=== PATIENT | female | born 1940 | race Caucasian/White ===

== ENCOUNTER → 2018-01-03 | Day surgery (SDC) | payer MEDICARE, BC ==
[~2018-01-03] MED LIST: LIDOCAINE 2% PF Vial for OR 5 ML VIAL.; PROPOFOL 40 ML IV; SODIUM PHOSPHATES 19/7GM 133 ML ENEMA.
[2018-01-03] MEDS: IV RINGERS,LACTATED 1000ML 1,000 ML IV (09:30)
[2018-01-03] MEDS: SODIUM PHOSPHATES 19/7GM 133 ML ENEMA. PR (09:45)
[2018-01-03 09:58] LABS: POC GLUCOSE 88 mg/dL (70-99)
== END | disposition home or self-care (01) ==
LOC: SURG 09:12
DX: K64.0 First degree hemorrhoids (principal); K31.7 Polyp of stomach and duodenum; K29.70 Gastritis, unspecified, without bleeding; K31.84 Gastroparesis; K21.9 Gastro-esophageal reflux disease without esophagitis; E78.00 Pure hypercholesterolemia, unspecified; I10 Essential (primary) hypertension; J45.909 Unspecified asthma, uncomplicated; G47.30 Sleep apnea, unspecified; D64.9 Anemia, unspecified; E03.9 Hypothyroidism, unspecified; G43.909 Migraine, unspecified, not intractable, without status migrainosus; Z88.2 Allergy status to sulfonamides; Z90.49 Acquired absence of other specified parts of digestive tract; Z98.890 Other specified postprocedural states; Z86.010 Personal history of colon polyps; Z79.899 Other long term (current) drug therapy; Z90.710 Acquired absence of both cervix and uterus; Z85.72 Personal history of non-Hodgkin lymphomas
CPT/HCPCS: 43239; 45378; 82962; 88305; J2001; J2704

== ENCOUNTER → 2019-04-13 | Outpatient (CLI) | payer MEDICARE, BC ==
[2018-01-03 11:05] VITALS: BP 130/57
[~2019-04-13] MED LIST changes: +ASPI-630 PO; +CARV3.1210 PO; +CETI10TA22 PO; +ERYT250C8 PO; +IOHEXOL 300 MG/ML 50 ML VIAL. IJ ONE; +LEVO50TA5 PO; -LIDOCAINE 2% PF Vial for OR 5 ML VIAL.; +LOSA1TAB19 PO; +LUTE20CA4 PO; +MAGN400C PO; +MONT10TA49 PO; +MULT1TAB52 PO; +PANT20TA2 PO; +PRAV20TA2 PO; -PROPOFOL 40 ML IV; -SODIUM PHOSPHATES 19/7GM 133 ML ENEMA.
--- NOTE | 2019-04-15 08:23 | RAD ---
DATE: 04/15/2019 EXAM: MAMMO STEVEN DANIELLE BILAT HISTORY: Bloody right nipple discharge COMPARISON: 05/03/2017 and 06/17/2018 mammographic exams This study was interpreted with the benefit of Computerized Aided Detection (CAD). Breast Density: HETERO The breast parenchyma is heterogenously dense, which could reduce sensitivity of mammography. Breast parenchyma level C. FINDINGS: No suspicious calcification, masses, or distortion. IMPRESSION: Stable BI-RADS CATEGORY: 2 BENIGN FINDING(S) RECOMMENDED FOLLOW-UP: SURG SURGICAL CONSULTATION. Further evaluation with galactogram of the right breast is stable is recommended. PQRS compliance statement: Patient information was entered into a reminder system with a target due date for the next mammogram. Mammography is a sensitive method for finding small breast cancers, but it does not detect them all and is not a substitute for careful clinical examination. A negative mammogram does not negate a clinically suspicious finding and should not result in delay in biopsying a clinically suspicious abnormality. "Our facility is accredited by the [employer] Mammography Program."
--- NOTE | 2019-04-15 08:31 | RAD ---
Examination: DUCTOGRAM MULT DUCT RT W/INJ History: Right bloody nipple discharge Comparison/Correlation: 05/03/2017 diagnostic mammogram, 06/17/2018 screening mammogram, and right breast ultrasound 05/03/2017 Findings: Expression of clear nipple discharge is noted prior to beginning the exam and this is at the right upper outer nipple region. Cleansing with alcohol which was performed. The duct which was producing the discharge was successfully cannulated. Contrast was injected. There was significant resistance upon injection of the contrast. Multiple images were acquired. Multiple attempts at injecting the contrast were made. Contrast is noted to extend to the subareolar and anterior retroareolar region. Contrast within the duct of interest appears to be present. There are multiple filling defects in the subareolar region within this duct. Relative narrowing of the duct more posteriorly is evident as well. Impression: Multiple filling defects within the right upper outer duct from which discharge was noted. Findings raise concern of papilloma or other mass involvement. Surgical consultation consultation and biopsy should be considered.
== END ==
LOC: MAMMO 14:04
PROVIDERS: ATTEND Surgery
DX: N64.52 Nipple discharge (principal)
CPT/HCPCS: 19030; 77054; 77066; G0279; Q9967; 77062